=== PATIENT | male | born 1950 | race Caucasian/White ===

== ENCOUNTER 2016-11-17 16:15 | Outpatient (CLI) | payer SELFPAY | END 2016-11-17 16:16 | disposition EMS.NT | LOC: EMS 16:15 | PROVIDERS: ATTEND Surgery | DX: R03.0 Elevated blood-pressure reading, without diagnosis of hypertension (principal) ==

== ENCOUNTER 2019-03-23 11:32 | Outpatient (CLI) | payer OTHER ==
--- NOTE | 2019-03-25 08:29 | CT Report ---
Reason: TOBACCO USE Procedure Date: 03/23/2019 Accession Number: [id number] / [id number] Procedure: CT - Low Dose Lung Cancer Screen CPT Code: FULL RESULT: EXAM CT LUNG SCREEN EXAM DATE: 03/23/2019 12:10 PM. HISTORY: 69-year-old patient with 3 pipe bowls per day x30 years smoking history. Currently smoking: Yes. Patient has cough. COMPARISON: None. TECHNIQUE: CT examination of the entire thorax without contrast was performed using low-dose technique. Thin section coronal, axial, sagittal and MIP axial images were obtained. In accordance with CT protocol optimization, one or more of the following dose reduction techniques were utilized for this exam: automated exposure control, adjustment of mA and/or KV based on patient size, or use of iterative reconstructive technique. FINDINGS: Nodules: Right upper lobe: None. Right middle lobe: None. Right lower lobe: 3 mm lateral right lower lobe lung nodule on series 4 image 99, corresponding to MIP series 9 image 40. Left upper lobe: None. Left lower lobe: None. Emphysema: None. Pleura: Unremarkable. Aorta: Unremarkable. Mediastinum: Unremarkable. Coronary calcifications: None. Other pulmonary findings: None. Other extrapulmonary findings: Old, healed T5 vertebral compression fracture. Lower thoracic spine DISH. Prior thoracolumbar posterior fusion for old, healed fracture involving T12 vertebral body and possibly posterior elements. Old, healed sternal body fracture. IMPRESSION: Lung-RADS ASSESSMENT CATEGORY: 2 - benign appearance or behavior. Probability of malignancy: Less than 1%. RECOMMENDATION: Continue annual low-dose chest CT screening until no longer eligible for definitive therapy. [facility]
== END 2019-03-23 11:33 | disposition home or self-care (01) ==
LOC: DI 11:32
DX: Z12.2 Encounter for screening for malignant neoplasm of respiratory organs (principal); F17.210 Nicotine dependence, cigarettes, uncomplicated